=== PATIENT | male | born 1990 | race Caucasian/White ===

== ENCOUNTER → 2020-05-22 11:19 | Outpatient (CLI) | payer SELFPAY ==
--- NOTE | ~2020-05-22 | XR_ITS ---
XR foot RT min 3V 05/22/2020 12:10 INDICATION: Right foot pain PROCEDURE: 4 views right foot COMPARISON: No prior studies for comparison. FINDINGS: Fracture, dislocation or subluxation is not identified. Lisfranc joint intact. The soft tis sues appear within normal limits. No foreign bodies are identified. IMPRESSION: 1: NO ACUTE BONE OR JOINT ABNORMALITY IDENTIFIED. Reviewed, dictated and finalized at location B.
--- NOTE | ~2020-05-22 | XR_ITS ---
XR ankle RT 2V 05/22/2020 12:10 INDICATION: Right ankle pain PROCEDURE: 2 views right ankle COMPARISON: No prior studies for comparison. FINDINGS: Fracture, dislocation or subluxation is not identified. Ankle mortise intact. Talar dome wi thin normal limits. The soft tissues appear within normal limits. No foreign bodies are identified. IMPRESSION: 1: NO ACUTE BONE OR JOINT ABNORMALITY IDENTIFIED. Reviewed, dictated and finalized at location B.
--- NOTE | ~2020-05-22 | US_ITS ---
EXAMINATION: US soft tissue LE RT DATE: 05/22/2020 12:00 INDICATION: Localized lump and swelling at the anterolateral aspect of the right foot in the region o f the right fifth metatarsal. TECHNIQUE: Multiple grayscale and Doppler ultrasound images of the region of concern at the lateral r ight foot were obtained. COMPARISON: None FINDINGS/IMPRESSION: Normal appearance to the subcutaneous fat and underlying musculature at the region of concern. No abn ormal mass or fluid collections identified. Reviewed, dictated and finalized at location A.
== END ==
PROVIDERS: Visit Provider Emergency Medicine
DX: M25.571 Pain in right ankle and joints of right foot (principal)
CPT/HCPCS: 73600; 73630; 76882